=== PATIENT | male | born 1985 | race Caucasian/White ===

== ENCOUNTER 2024-02-02 02:05 | Emergency (ER) | payer OTHER ==
[~2024-02-02] VITALS: Ht 170.2 cm; Wt 81.6 kg
[2024-02-02 02:18] VITALS: BP_SYST 131; PULSE 110; RESP 17; TEMP 97.3; O2SAT 97
[2024-02-02] MEDS ORDERED: BACITRACIN 1 GM OINT TP ONE (02:32)
[2024-02-02 02:36] VITALS: BP_SYST 131; PULSE 110; RESP 17; TEMP 97.3; O2SAT 97
== END 2024-02-02 02:35 ==
LOC: SED 02:05
DX: S60.410A Abrasion of right index finger, initial encounter (principal); X58.XXXA Exposure to other specified factors, initial encounter; Y93.89 Activity, other specified; Y92.89 Other specified places as the place of occurrence of the external cause; Y99.8 Other external cause status
CPT/HCPCS: 99283